=== PATIENT | female | born 1955 | race Caucasian/White ===

== ENCOUNTER 2019-07-24 12:33 | Inpatient (IN) | payer MEDICAID ==
[~2019-07-24] VITALS: Ht 172.7 cm; Wt 56.8 kg
--- NOTE | 2019-07-24 13:51 | NUR ---
PT REFUSING PAIN MEDICATION AND SEXTON AT THIS TIME
[2019-07-24 13:59] LABS: BASOPHILS % (AUTO) 0.3 % (0-1); EOSINOPHILS % (AUTO) 0.5 % (0-6); HEMATOCRIT 42.9 % (35.0-45.0); HEMOGLOBIN 14.4 g/dl (12.0-16.0); LYMPHOCYTES # (AUTO) 0.9 X10'3 (1.1-4.8); LYMPHOCYTES % (AUTO) 10.2 % (21-51); MEAN CORPUSCULAR HEMOGLOBIN 29.1 PG (27.0-31.0); MEAN CORPUSCULAR HGB CONC 33.6 g/dL (33.0-36.5); MEAN CORPUSCULAR VOLUME 86.5 FL (78-98); MONOCYTES # (AUTO) 0.5 X10'3 (0-0.9); MONOCYTES % (AUTO) 6.2 % (2-12); NEUTROPHILS # (AUTO) 7.3 X10'3 (1.8-7.7); NEUTROPHILS % (AUTO) 82.8 % (42-75); PLATELET COUNT 203 X10'3 (140-440); RED BLOOD COUNT 4.96 X10'6 (4.20-5.60); RED CELL DISTRIBUTION WIDTH 13.7 % (11.5-14.5); WHITE BLOOD COUNT 8.8 X10'3 (4.5-11.0)
[2019-07-24 14:08] LABS: PARTIAL THROMBOPLASTIN TIME 24 SECONDS (22-32)
[2019-07-24 14:10] LABS: ALANINE AMINOTRANSFERASE 22 U/L (12-78); ALBUMIN 3.9 G/DL (3.4-5.0); ALBUMIN/GLOBULIN RATIO 1.1 (1.1-1.5); ALKALINE PHOSPHATASE 80 IU/L (46-116); ANION GAP 8 (8-16); ASPARTATE AMINO TRANSFERASE 18 U/L (10-37); BILIRUBIN,TOTAL 0.5 MG/DL (0.1-1.0); BLOOD UREA NITROGEN 15 MG/DL (7-18); BUN/CREATININE RATIO 21.7 (6.6-38.0); CALCIUM 8.9 MG/DL (8.5-10.1); CHLORIDE 105 MMOL/L (99-107); CREATININE 0.69 MG/DL (0.40-0.90); GLUCOSE 104 MG/DL (70-104); POTASSIUM 4.2 MMOL/L (3.5-5.1); SODIUM 140 MMOL/L (135-145); TOTAL CARBON DIOXIDE 27.3 MMOL/L (24-32); TOTAL PROTEIN 7.5 G/DL (6.4-8.2); eGFR 86 ML/MIN
[2019-07-24] MEDS ORDERED: morphine 2 MG/ML inj. syringe IV PRN ×2 (15:00)
[2019-07-24] MEDS ORDERED: magnesium hydroxide 30ml (MOM) UD suspension PO PRN (15:00)
[2019-07-24] MEDS ORDERED: magnesium 2GM in 50ml NS 50 ML IV PRN (15:00)
[2019-07-24] MEDS ORDERED: potassium Cl 20 mEq SR tablet PO PRN ×2 (15:00)
[2019-07-24] MEDS ORDERED: magnesium 4gm in 100ml NS 100 ML IV PRN (15:00)
[2019-07-24] MEDS ORDERED: acetaminophen 325mg tablet PO PRN ×2 (15:00)
[2019-07-24] MEDS ORDERED: ondansetron/PF 4mg/2ml inj IV PRN (15:00)
[2019-07-24] MEDS ORDERED: mag hydrox/Alum hydrox/simeth 30ml oral suspension PO PRN (15:00)
[2019-07-24] MEDS ORDERED: potassium CL 10mEq/100ml bag 100 ML IV PRN ×2 (15:00)
[2019-07-24] MEDS ORDERED: magnesium Cl slow-release 64mg tablet PO PRN (15:00)
[2019-07-24] MEDS: normal saline 1000ml 1,000 ML IV SCH (15:35)
[2019-07-24] MEDS ORDERED: CALC500T11 PO (15:36)
[2019-07-24] MEDS ORDERED: MAGN400C PO (15:36)
[2019-07-24] MEDS: HYDROcodone/acetaminophen 5mg/325mg tablet PO PRN (15:59)
--- NOTE | 2019-07-24 16:10 | NUR ---
attempted to call report to JEANIE drew.
--- NOTE | 2019-07-24 16:28 | NUR ---
Patient in room ED 2. I have received report from Btety WARE and had the opportunity to ask questions and assume patient care.
[2019-07-24 17:00] VITALS: BP 123/76
--- NOTE | 2019-07-24 17:00 | NUR ---
patient arrived to floor into room 4009B patient stable upon arrival
--- NOTE | 2019-07-24 18:32 | NUR ---
Problems reprioritized. Patient report given, questions answered & plan of care reviewed with Diego WARE.
[2019-07-24] MEDS: heparin, porcine 5000 units/ml vial SQ SCH (19:49)
[2019-07-24] MEDS ORDERED: temazepam 15mg capsule PO PRN (21:00)
[2019-07-24] MEDS: HYDROcodone/acetaminophen 10/325mg tab PO PRN (21:21)
[2019-07-24 22:00] VITALS: BP 103/61
[2019-07-25] VITALS (17 sets, daily range): BP systolic 99–120; BP diastolic 54–72
[2019-07-25] MEDS: HYDROcodone/acetaminophen 10/325mg tab PO PRN ×5 (03:22→19:21)
[2019-07-25 03:33] LABS: CLARITY,URINE CLEAR (Clear); COLOR,URINE YELLOW (Yellow); GLUCOSE, URINE NEGATIVE (Neg); KETONES,URINE NEGATIVE (Neg); LEUKOCYTE ESTERASE ,URINE NEGATIVE (Neg); NITRITES, URINE NEGATIVE (Neg); OCCULT BLOOD,URINE NEGATIVE (Neg); PROTEIN,URINE NEGATIVE (Neg); UROBILINOGEN,URINE 0.2 E.U/dL (0.2-1.0)
[2019-07-25 03:40] LABS: UA COLLECTION TYPE NON-SPECIFIED
[2019-07-25 06:29] LABS: BASOPHILS % (AUTO) 0.8 % (0-1); EOSINOPHILS # (AUTO) 0.3 X10'3 (0-0.9); EOSINOPHILS % (AUTO) 5.9 % (0-6); HEMOGLOBIN 12.2 g/dl (12.0-16.0); LYMPHOCYTES # (AUTO) 1.5 X10'3 (1.1-4.8); LYMPHOCYTES % (AUTO) 30.9 % (21-51); MEAN CORPUSCULAR HEMOGLOBIN 29.9 PG (27.0-31.0); MEAN CORPUSCULAR HGB CONC 33.9 g/dL (33.0-36.5); MEAN CORPUSCULAR VOLUME 88.1 FL (78-98); MEAN PLATELET VOLUME 10.3 FL (7.4-10.4); MONOCYTES # (AUTO) 0.4 X10'3 (0-0.9); MONOCYTES % (AUTO) 8.6 % (2-12); NEUTROPHILS # (AUTO) 2.6 X10'3 (1.8-7.7); NEUTROPHILS % (AUTO) 53.8 % (42-75); PLATELET COUNT 164 X10'3 (140-440); RED BLOOD COUNT 4.09 X10'6 (4.20-5.60); RED CELL DISTRIBUTION WIDTH 13.7 % (11.5-14.5); WHITE BLOOD COUNT 4.7 X10'3 (4.5-11.0)
[2019-07-25 06:38] LABS: ALBUMIN 2.9 G/DL (3.4-5.0); ANION GAP 8 (8-16); BLOOD UREA NITROGEN 12 MG/DL (7-18); BUN/CREATININE RATIO 16.9 (6.6-38.0); CALCIUM 8.4 MG/DL (8.5-10.1); CHLORIDE 111 MMOL/L (99-107); CREATININE 0.71 MG/DL (0.40-0.90); GLUCOSE 92 MG/DL (70-104); POTASSIUM 4.2 MMOL/L (3.5-5.1); SODIUM 146 MMOL/L (135-145); TOTAL CARBON DIOXIDE 27.5 MMOL/L (24-32); eGFR 83 ML/MIN
--- NOTE | 2019-07-25 06:44 | NUR ---
Patient in room ORTHO 4009. I have received report from Diego WARE and had the opportunity to ask questions and assume patient care.
[2019-07-25] MEDS: normal saline 1000ml 1,000 ML IV SCH ×3 (06:47→16:10)
[2019-07-25] MEDS: K and/or MAG REPLACEMENT MC SCH (07:05)
[2019-07-25] MEDS: heparin, porcine 5000 units/ml vial SQ SCH ×2 (07:06→19:26)
--- NOTE | 2019-07-25 07:26 | NUR ---
report given to Bren WARE OR charge
[2019-07-25] MEDS ORDERED: ceFAZolin 1000mg inj ONE ×2 (07:32→08:40)
[2019-07-25] MEDS ORDERED: midazolam 2 mg/2 ml injection ONE ×2 (07:53)
[2019-07-25] MEDS ORDERED: fentaNYL/PF 50MCG/1 ML 2ML syringe ONE (07:53)
--- NOTE | 2019-07-25 08:42 | NUR ---
ARRIVED IN PACU VIA BED FROM OR WITH DR LLANES IN ATTENDANCE. PT AWAKENS EASILY. WIGGLES TOES. L FOOT AND TOES WARM AND PINK. NO C/O PAIN. HOB UP 30 DEGREES
[2019-07-25] MEDS ORDERED: ringers solution, lacted 1,000 ML IV SCH (08:48)
[2019-07-25] MEDS ORDERED: meperidine/PF 25mg/ml syringe IV PRN ×3 (08:50)
[2019-07-25] MEDS ORDERED: proCHLORperazine 10 MG/2 ml inj IV PRN (08:50)
[2019-07-25] MEDS ORDERED: ondansetron/PF 4mg/2ml inj IV PRN (08:50)
[2019-07-25] MEDS ORDERED: morphine 4 MG/ML inj SYRINge IV PRN ×2 (08:50)
--- NOTE | 2019-07-25 09:12 | NUR ---
COMFORTABLE. VS STABLE.
--- NOTE | 2019-07-25 09:17 | NUR ---
report received from recovery
--- NOTE | 2019-07-25 09:32 | NUR ---
TRANSPORTED TO [facility] ([place] AT BEDSIDE. PT AWAKE AND COMFORTABLE ON ARRIVAL
--- NOTE | 2019-07-25 09:48 | NUR ---
patient arrived to floor into room 4009B patient stable upon arrival
--- NOTE | 2019-07-25 12:48 | NUR ---
Diet order comments request pt visit to discuss diet details. Pt seen at bedside reports gluten and lactose intolerance and states she also doesn't eat beef or pork. Pt endorses a good appetite and requests hot herbal tea TID and agrees to peanut butter with celery and carrots TID. All preferences d/w dietary. Pt provided with RD contact information. Will continue to follow. Addendum: 07/25/19 at [address] Amended: Links added.
[2019-07-25] MEDS: ceFAZolin 1GM/D5W- ADD-VANTAGE 50 ML IV SCH ×2 (16:10→23:30)
--- NOTE | 2019-07-25 18:00 | NUR ---
Patient in room ORTHO 4009. I have received report from viki and had the opportunity to ask questions and assume patient care.
--- NOTE | 2019-07-25 18:33 | NUR ---
Problems reprioritized. Patient report given, questions answered & plan of care reviewed with samuel and Dago RN.
[2019-07-26] VITALS (7 sets, daily range): BP systolic 86–104; BP diastolic 40–65
[2019-07-26] MEDS: HYDROcodone/acetaminophen 10/325mg tab PO PRN ×3 (00:38→17:16)
--- NOTE | 2019-07-26 06:22 | NUR ---
Problems reprioritized. Patient report given, questions answered & plan of care reviewed with rafael.
[2019-07-26] MEDS: K and/or MAG REPLACEMENT MC SCH (08:00)
[2019-07-26] MEDS: heparin, porcine 5000 units/ml vial SQ SCH ×2 (08:58→20:49)
[2019-07-26] MEDS: ceFAZolin 1GM/D5W- ADD-VANTAGE 50 ML IV SCH ×2 (08:58→16:00)
[2019-07-26 09:14] LABS: BASOPHILS % (AUTO) 0.8 % (0-1); EOSINOPHILS # (AUTO) 0.3 X10'3 (0-0.9); EOSINOPHILS % (AUTO) 5.6 % (0-6); HEMATOCRIT 34.5 % (35.0-45.0); HEMOGLOBIN 11.7 g/dl (12.0-16.0); LYMPHOCYTES # (AUTO) 1.3 X10'3 (1.1-4.8); LYMPHOCYTES % (AUTO) 21.3 % (21-51); MEAN CORPUSCULAR HEMOGLOBIN 29.4 PG (27.0-31.0); MEAN CORPUSCULAR HGB CONC 33.9 g/dL (33.0-36.5); MEAN CORPUSCULAR VOLUME 86.9 FL (78-98); MEAN PLATELET VOLUME 10.6 FL (7.4-10.4); MONOCYTES # (AUTO) 0.6 X10'3 (0-0.9); MONOCYTES % (AUTO) 9.9 % (2-12); NEUTROPHILS # (AUTO) 3.7 X10'3 (1.8-7.7); NEUTROPHILS % (AUTO) 62.4 % (42-75); PLATELET COUNT 179 X10'3 (140-440); RED BLOOD COUNT 3.97 X10'6 (4.20-5.60); RED CELL DISTRIBUTION WIDTH 13.8 % (11.5-14.5)
[2019-07-26 09:17] LABS: ALBUMIN 2.9 G/DL (3.4-5.0); ANION GAP 7 (8-16); BLOOD UREA NITROGEN 10 MG/DL (7-18); BUN/CREATININE RATIO 14.7 (6.6-38.0); CHLORIDE 107 MMOL/L (99-107); CREATININE 0.68 MG/DL (0.40-0.90); GLUCOSE 93 MG/DL (70-104); MAGNESIUM 1.9 MG/DL (1.5-2.4); POTASSIUM 3.6 MMOL/L (3.5-5.1); SODIUM 142 MMOL/L (135-145); TOTAL CARBON DIOXIDE 28.1 MMOL/L (24-32); eGFR 87 ML/MIN
[2019-07-26] MEDS: lactobacillus rhamnosus 10,000 MMU CELLS/CAPSULE PO SCH (20:00)
[2019-07-26] MEDS: HYDROcodone/acetaminophen 5mg/325mg tablet PO PRN (22:13)
[2019-07-27] MEDS: HYDROcodone/acetaminophen 5mg/325mg tablet PO PRN ×2 (03:38→14:52)
[2019-07-27 06:00] VITALS: BP 90/54
[2019-07-27] MEDS: K and/or MAG REPLACEMENT MC SCH (08:00)
[2019-07-27] MEDS: lactobacillus rhamnosus 10,000 MMU CELLS/CAPSULE PO SCH (08:00)
[2019-07-27] MEDS: heparin, porcine 5000 units/ml vial SQ SCH (08:41)
--- NOTE | 2019-07-27 09:36 | NUR ---
PAGER ID: [phone] MESSAGE: [id number] Myra Kapadia Patient has discharge orders, minus pain meds and anticoag. [facility] [id number]
[2019-07-27 10:00] VITALS: BP 94/54
== END 2019-07-27 12:00 | disposition home or self-care (01) | DRG 308 ==
LOC: ER 12:34 → ED HOLD 14:58 → ORTHO 4S 16:35
PROVIDERS: ADMIT Internal Medicine; ATTEND Internal Medicine
PROC: 0QH734Z Insertion of Internal Fixation Device into Left Upper Femur, Percutaneous Approach (ICD-10-PCS; principal; 2019-07-25 07:55)
DX: S72.002A Fracture of unspecified part of neck of left femur, initial encounter for closed fracture (principal); M85.80 Other specified disorders of bone density and structure, unspecified site; W18.39XA Other fall on same level, initial encounter; Y93.89 Activity, other specified; Y92.89 Other specified places as the place of occurrence of the external cause; Y99.8 Other external cause status; Z79.899 Other long term (current) drug therapy
CPT/HCPCS: 36415; 71045; 73502; 73560; 76000; 80048; 80053; 81003; 82948; 83735; 85025; 85610; 85730; 86885; 86900; 86901; 87081; 93005; 97110; 97116; 97162; 97530; 99285; A4215; A4615; A7000; C1713; G0378; J0690; J1644; J2250; J2270; J3010; J7030; J7120